=== PATIENT | male | born 1955 | race Caucasian/White ===

== ENCOUNTER 2023-12-08 08:49 | Day surgery (SDC) | payer BC ==
[2023-12-05 08:29] LABS: Absolute Basophils 0.1 K/uL (0-0.5); Absolute Eosinophils 0.1 K/uL (0-0.5); Absolute Lymphocytes (CBC) 1.4 K/uL (0.7-4.9); Absolute Monocytes 0.5 K/uL (0.1-1.3); Absolute Neutrophil 5.5 K/uL (1.8-8.0); Basophils % 0.8 % (0-1.3); Eosinophils % 1.4 % (0-4.4); Hematocrit 44.8 % (39.6-49.0); Lymphocytes % 18.6 % (15.3-44.8); MCH 32.2 pg (27.0-35.0); MCHC 33.4 g/dL (32.0-36.0); MCV 96.5 fL (80-100); MPV 7.9 fL (7.6-11.3); Neutrophils % 72.2 % (41.7-73.7); Nucleated Red Blood Cells % 0.1 % (0-0); Platelets 226 thou/uL (152-406); RBC Red Blood Cell Count 4.65 M/uL (4.33-5.43); Red Cell Distribution Width 13.1 % (12.1-15.2)
--- NOTE | 2023-12-05 08:35 | RAD REPORT ---
EXAM DESCRIPTION: Corinna Meneses (2 Views)12/05/2023 8:22 am CLINICAL HISTORY: Preop for penile surgery COMPARISON: 2007 FINDINGS: The lungs appear clear of acute infiltrate. The heart is normal size IMPRESSION: No acute abnormalities displayed
[2023-12-05 08:37] LABS: Anion Gap 8.4 mEq/L (5.0-15.0); Potassium 4.4 mEq/L (3.5-5.1)
[2023-12-05 08:38] LABS: Protime INR 0.89
--- NOTE | 2023-12-05 13:27 | EKG ---
Test Date: 2023-12-05 Test Time: 08:13:32 Puller Through: CAROLYNN MEASUREMENT RESULTS: Intervals: Rate: 55 DC: 150 QRSD: 90 QT: 432 QTc: 413 [place]: P: 63 DC: 150 QRS: 59 T: 49 INTERPRETIVE STATEMENTS: Sinus bradycardia Septal infarct, age undetermined Abnormal ECG Compared to ECG 10/18/2007 06:36:16 Sinus rhythm no longer present T-wave abnormality no longer present Possible ischemia no longer present Myocardial infarct finding still present Electronically Signed On 12-05-23 13:26:05 CDT by Fazal Rios
[2023-12-08] MEDS ORDERED: NA CHLORIDE 0.9% 1,000 ML ONE (09:05)
[2023-12-08] MEDS ORDERED: MIDAZOLAM HCL 2 MG/2 ML INJ ONE (09:28)
[2023-12-08] MEDS ORDERED: FENTANYL CITR 100 MCG/2 ML ONE ×2 (09:28→10:45)
[2023-12-08] MEDS ORDERED: propofoL 200 MG/20 ML VIAL IV ONE (09:28)
[2023-12-08] MEDS ORDERED: ONDANSETRON 4 MG/2 ML VIAL ONE (09:28)
[2023-12-08] MEDS ORDERED: LIDOCAINE 1% MPF 5 ML VIAL ONE (09:29)
[2023-12-08] MEDS ORDERED: SUGAMMADEX SODIUM 200 MG/2 ML VIAL IV ONE (09:34)
[2023-12-08] MEDS ORDERED: EPHEDRINE SULF 50 MG/ML VIAL ONE (10:21)
[2023-12-08] MEDS ORDERED: dexAMETHasone 10 MG/ML VIAL ONE (10:22)
[2023-12-08] MEDS ORDERED: GLYCOPYRROLATE 0.2 MG/ML SYR ONE (10:22)
[2023-12-08] MEDS: CEFAZOLIN SODIUM 2 GM/VIAL ONE (10:23)
[2023-12-08] MEDS ORDERED: PHENAZOPYRIDINE 100MG TAB PO ONE (12:19)
[2023-12-08] MEDS: PHENAZOPYRIDINE 100MG TAB PO ONE (12:20)
[2023-12-08] MEDS ORDERED: CODEINE 30MG/APAP 300MG TAB ONE (12:22)
[2023-12-08] MEDS: CODEINE 30MG/APAP 300MG TAB PO PRN (12:25)
[2023-12-08 13:41] VITALS: BP 125/60; TEMP 96.6; O2SAT 97
--- NOTE | 2023-12-08 21:37 | OP ---
Surgeon: MARYAM JANE Preoperative Diagnoses: 1.Membranous urethral lesion. 2.Gross hematuria. Postoperative Diagnoses: 1.Membranous urethral lesion approximately 1.5 cm papillary. 2.Gross hematuria. Principal Procedure: 1.Cystoscopy with biopsies/resection of urethral lesion. 2.A 20-Palauan urethral Cornell catheter placement. 3.Bladder irrigation. Indication For Procedure: Mr. Rogers presented to the [facility]rology [facility] with gross hematuria and underwe nt evaluation including upper tract imagery, which was unremarkable. Upon cystoscopic evaluation of his bladder, only an abnormal appearing papillary urethral lesion was noted surrounding the verumonta num just beyond the striated sphincter at the apex of the prostate, proximal to the striated sphincte r. As a result, he was counseled on the potential that this was the likely source of his gross hemat uria and merited biopsy and removal given its potential risk for being urothelial or other squamous c ell malignancy. Procedure In Detail: The patient was consented in the preoperative holding area before being transfe rred to the operative suite where general anesthesia was induced. He was given Ancef 2 g IV antimicr obial prophylaxis, and pneumoboots were provided for DVT prophylaxis. He was placed in the lithotomy position, padded and secured to the table appropriately. His genitalia were prepped with Hibiclens and he was draped in standard fashion. The case was begun using a 22-Palauan rigid cystoscope to lilly erse the urethra until the bulbar urethra was encountered and I navigated beyond the striated urethra l sphincter into the membranous urethra and immediately noted the presence of the papillary urothelia l neoplasm in that location. The particular neoplasm seem to largely occupy the right lateral aspect of the distal extent of the verumontanum, but also extend into the medial aspect of the verumontanum overlying the verumontanum along its course. It extended proximally for a total length of approxima tely 1 to 1.5 cm and was about 1 to 1.5 cm in maximal diameter. As a result, I navigated the scope b eyond it into the patient's bladder and decompressed it of fluid and urine. I then surveyed the blad dominic in its entirety again, and confirmed the absence of any papillary mucosal lesions, foreign bodies , or stones. I thus returned back into the membranous urethra this time with the cold cup biopsy for ceps installed, and I began to biopsy and remove each component of the lesion across the entirety of its extent, using the cold cup biopsy forceps to remove all traces of the lesion of suspicion. This was all sent for pathologic analysis, and then I surveyed the prostatic urethra again for any signs o f residual disease and none was noted. There was some expected bleeding during the procedure, but it did seem to clot within the prostatic urethra. So, instead of fulgurating the base of the lesion, w hich would increase the risk of stricture disease in that location, I instead elected to attempt to t amponade the bleeding and forego the need for fulguration. As a result, I decompressed his bladder o f fluid and urine and tried to remove any clots from within before ultimately filling his bladder and removing the cystoscope. I then placed a 20-Palauan Cornell catheter into his bladder with ease and 30 cc of sterile water in the balloon. Using a 60 cc catheter tip syringe, I irrigated his bladder and removed a small quantity of clot from within. I placed the catheter to moderate traction to aid in the tamponade, and the returning efflux of urine was crystal clear to minimally pink. As a result, t he patient was taken out of the lithotomy position, awakened from general anesthesia, transferred to a stretcher, and then transferred to the recovery room in good condition. Complications: None. Discharge Disposition: He will require follow up to discuss the pathology of the resected lesion and to determine if additional adjuvant therapy is required. Given the location of this lesion in the m embranous urethra, any attempts at intravesical therapy may be quite challenging in order to make suc cessful; so depending on the pathology of the lesion, other considerations may be required. Lorenzo jacobson, there may be a role for something like Jelmyto administered within the prostatic urethra with a catheter and balloon inflated to prevent entry into the bladder in case urothelial carcinoma is identified. DURGA/MODL Voice ID: [id number] Report ID: [id number]
== END 2023-12-08 12:40 | disposition home or self-care (01) ==
LOC: OR 08:49
PROVIDERS: ATTEND Urology
PROC: 0TBD8ZX Excision of Urethra, Via Natural or Artificial Opening Endoscopic, Diagnostic (ICD-10-PCS; principal; 2023-12-08 10:00)
DX: N36.2 Urethral caruncle (principal); N36.9 Urethral disorder, unspecified; N40.2 Nodular prostate without lower urinary tract symptoms; R31.0 Gross hematuria
CPT/HCPCS: 52204; 93005; 85025; 87086; 80048; 36415; 85610; 82947 ×2; 88305; 71046; J2704; J2001; J2250; J3010 ×2; J1100; J2405; J7030; 87088

== ENCOUNTER → 2024-07-06 | Day surgery (SDC) | payer BC ==
[2024-06-24 11:01] LABS: Absolute Lymphocytes (CBC) 0.9 K/uL (0.7-4.9); Absolute Monocytes 0.2 K/uL (0.1-1.3); Absolute Neutrophil 4.9 K/uL (1.8-8.0); Basophils % 0.4 % (0-1.3); Eosinophils % 0.7 % (0-4.4); Hematocrit 40.2 % (39.6-49.0); Hemoglobin 13.6 g/dL (13.6-17.9); Lymphocytes % 15.5 % (15.3-44.8); MCH 31.7 pg (27.0-35.0); MCHC 33.8 g/dL (32.0-36.0); MCV 93.8 fL (80-100); MPV 8.1 fL (7.6-11.3); Monocytes % 3.5 % (3.3-12.3); Neutrophils % 79.9 % (41.7-73.7); Platelets 209 thou/uL (152-406); RBC Red Blood Cell Count 4.29 M/uL (4.33-5.43); Red Cell Distribution Width 13.1 % (12.1-15.2)
[2024-06-24 11:07] LABS: PT Prothrombin Time 10.6 SECONDS (10-13.0); Protime INR 0.93
[2024-06-24 11:15] LABS: Anion Gap 6.9 mEq/L (5.0-15.0); Potassium 3.9 mEq/L (3.5-5.1)
--- NOTE | 2024-06-24 13:01 | RAD REPORT ---
EXAMINATION: ONE VIEW CHEST XR CLINICAL INDICATION: Male, 68 years old.,pre-op. Hypertension TECHNIQUE: Frontal chest projection is submitted. Examination is limited by patient positioning and t echnique. COMPARISON: 12/05/2023 FINDINGS: The lungs are well inflated and clear. No pneumothorax or sizable effusion. The heart is normal in s ize. Mediastinal contours are unremarkable. IMPRESSION: No acute intrathoracic abnormalities.
--- NOTE | 2024-06-25 14:41 | EKG ---
Test Date: 2024-06-24 Test Time: 11:11:45 Family Dinner Service Specialist: CAROLYNN MEASUREMENT RESULTS: Intervals: Rate: 47 MO: 144 QRSD: 86 QT: 480 QTc: 424 [place]: P: 56 MO: 144 QRS: 62 T: 43 INTERPRETIVE STATEMENTS: Sinus bradycardia Septal infarct, age undetermined Abnormal ECG Compared to ECG 12/05/2023 08:13:32 No significant changes Electronically Signed On 06-25-24 14:40:01 CDT by Fazal Rios
[~2024-07-06] MED LIST: CODEINE 30MG/APAP 300MG TAB PO PRN; EPHEDRINE SULF 50 MG/ML VIAL ONE; FENTANYL CITR 100 MCG/2 ML ONE; GLYCOPYRROLATE 0.2 MG/ML SYR ONE; LIDOCAINE 1% MPF 5 ML VIAL ONE; MIDAZOLAM HCL 2 MG/2 ML INJ ONE; NA CHLORIDE 0.9% 1,000 ML ONE; ONDANSETRON 4 MG/2 ML VIAL ONE; Ringers Lactate 0 ML IV ONE; propofoL 200 MG/20 ML VIAL IV ONE
[2024-07-06] MEDS: CEFAZOLIN SODIUM 2 GM/VIAL ONE (08:48)
--- NOTE | 2024-07-06 10:02 | P.OP ---
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 He underwent a biopsy revealing the presence of high risk prostate cancer and elected radiation therapy. SpaceOAR gel was requested to decrease the incidence of radiation proctitis, and fiducial markers were requested to aid in targeting. Procedure note: The patient was consented in the preoperative holding area before being transferred to the operative suite where general anesthesia was induced. He was given Ancef 2 g IV antimicrobial prophylaxis, and pneumoboots were provided for DVT prophylaxis. He was placed in the high lithotomy position, padded and secured appropriately. His genitalia was elevated out of the perineal region using an Ioban drape, and Betadine was used to prep the perineal region. A transrectal ultrasound probe was placed via the anus into the rectum and the prostate was visualized from the perineal region all the way to the base at the seminal vesicles. A very clear white stripe of prerectal fat was identifiable. As a result, I started the procedure and the patient's left lateral perineum off the midline about 1.5 to 2 cm above the anus, and I was able to navigate a fiducial marker under ultrasound guidance through the urogenital diaphragm and into the prostate benedict-laterally, at the most lateral extent ultrasonographically. I navigated the fiducial marker to the left mid gland and a inserted it at that location anteriorly. I then remove the needle and turned my attention to the patient's right lateral Tim prostate and similarly placed a fiducial needle through the perineum and the urogenital diaphragm into the prostate anteriorly on the right and navigated the needle into the mid gland where a second fiducial marker was placed. Once I remove the needle for that fiducial marker, I then took the SpaceOAR insertion needle primed with 10 cc of saline, and I inserted the needle directly in the midline about 1 cm above the anus and navigated the needle over the rectal hump and into the prerectal fat plane, and navigating the needle through the flat plane taking care not to enter into the rectum and ultimately to the mid base of the prostate in the midline. Efforts were taken to ensure the tip of the needle was situated in the midline at the level of the urethra, and at this point, I aspirated to ensure no blood or succus before injecting about 1 cc of saline hydro-dissecting beautifully in the midline and the rectum from the peripheral zone of the prostate. I then switched the saline syringe for the SpaceOAR components and injected the SpaceOAR mixture at the same site creating a beautiful separation between the prostate and the rectum as evidenced ultrasonographically that extended from the base all the way to the apex and across the midline symmetrically. As a result, I removed the needle. The Betadine was cleansed from his perineal region, and he was taken out of the lithotomy position. He was then awakened from general anesthesia before being transferred to a stretcher and then transferred to the recovery room in good condition. Complications: None Discharge disposition: He should schedule follow-up with Dr. Anderson to begin simulation for radiation therapy treatment. Subsequent follow-up with me should be established about 6 months after he completes the radiation, or about 9 to 10 months from now. Should he have any issues of urologic nature, sooner follow-up may be arranged.
[2024-07-06 11:25] VITALS: BP 137/59; TEMP 97.8; O2SAT 96
== END | disposition home or self-care (01) ==
LOC: OR 06:45
PROVIDERS: ATTEND Urology
PROC: 0VH43YZ Insertion of Other Device into Prostate and Seminal Vesicles, Percutaneous Approach (ICD-10-PCS; principal; 2024-07-06 08:15)
DX: C61 Malignant neoplasm of prostate (principal)
CPT/HCPCS: 93005; 85025; 87086; 80048; 36415; 85610; 82947 ×2; 71045; 55874; J2704; J2003; J2250; J3010 ×2; J2405; J7030; 87088; J7120